=== PATIENT | female | born 1960 | race African-American/Black ===

== ENCOUNTER 2018-10-15 12:56 | Emergency (ER) | payer MEDICARE, MEDICAID ==
[~2018-10-15] VITALS: Ht 162.6 cm; Wt 99.8 kg
--- NOTE | 2018-10-15 13:10 | Emergency Room Report ---
History of Present Illness General Chief Complaint: General Complaint Source: Patient (Betsy Phelps DO) Present Illness HPI Patient presents with complaints of general weakness Muscle twitching Some confusion and dizziness patient has been on chronic pain medications including morphine Recently was started on buprenorphine/naloxone She is also on Seroquel and Lyrica Recently now since Saturday patient having increased symptoms Denies any chest pain denies any vomiting or diarrhea Patient feels of the twitching is worse during the daytime involving both of her feet and her hands denies any change with speech (ErnestoluciaBetsy ) Allergies: Coded Allergies: No Known Allergies (Unverified , 10/15/18) Patient History Past Medical History: see triage record Pertinent Family History: none Reviewed Nursing Documentation: PMH: Agreed; PSxH: Agreed (ErnestoluciaBetsy ) Past Surgical History: pacemaker (Odin Delacruz MD) Nursing Documentation-PMH Hx Cardiac Problems: Yes - ANEMIA, FIBROMYALGIA, HYPERLIPIDEMIA Hx Hypertension: Yes History Of Psychiatric Problem: Yes (Betsy Phelps DO) Review of Systems All Other Systems: negative except mentioned in HPI (ErnestoluciaBetsy MARTINES) Physical Exam Vital Signs Date Time Temp Pulse Resp B/P (MAP) Pulse Ox O2 Delivery O2 Flow Rate FiO2 10/15/18 12:50 98.6 72 18 105/66 (79) 99 Room Air Sp02 EP Interpretation: reviewed, normal General Appearance: mild distress - Somewhat lethargic Head: normocephalic, atraumatic Eyes: bilateral eye PERRL, bilateral eye EOMI ENT: hearing grossly normal, TMs + canals normal, uvula midline, dry mucus membranes Neck: full range of motion, supple, no meningismus, no bony tend Respiratory: lungs clear, normal breath sounds, no rhonchi, no respiratory distress, no retraction, no accessory muscle use Cardiovascular #1: normal peripheral pulses, regular rate, rhythm, no edema, no gallop, no JVD, no murmur Gastrointestinal: normal bowel sounds, non tender, soft, no mass, no organomegaly, non-distended, no guarding, no hernia, no pulsatile mass, no rebound Genitourinary: no CVA tenderness Musculoskeletal: normal inspection Neurologic: oriented x3, responsive, valver III-XII nml as tested, motor strength/ tone normal, sensory intact Psychiatric: mood/affect normal Skin: normal color, no rash, warm/dry, palpation normal Lymphatic: normal inspection, no adenopathy (Betsy Phelps DO) Medical Decision Making Diagnostic Impression: Primary Impression: Adverse reaction to narcotic drug Qualified Codes: T40.605A - Adverse effect of unspecified narcotics, initial encounter Additional Impressions: Renal insufficiency Rhabdomyolysis Qualified Codes: M62.82 - Rhabdomyolysis ER Course Multiple differentials and consideration Including but not limited to intracranial, cardiac, metabolic pathology Patient is complex requiring extensive blood work (Betsy Phelps DO) ER Course Please see above note. Patient still feels dizzy and disoriented. She denies any nausea however she feels dehydrated at this time. She is receiving IV hydration. Labs are pending. Renal insufficiency and rhabdomyolysis. Alkalizing urine. Sending urine sodium and creatinine. Discussed with Dr. Guerin who accepts patient in transfer. Fractional excretion sodium = 0.6% - suggests pre-renal. Hydrating and giving bicarb. Transfer [facility]. Laboratory Tests Test 10/15/18 13:20 10/15/18 14:05 White Blood Count 7.4 K/UL (4.8-10.8) Red Blood Count 4.27 M/UL (4.20-5.40) Hemoglobin 13.0 G/DL (12.0-16.0) Hematocrit 40.6 % (37.0-47.0) Mean Corpuscular Volume 95 FL (80-99) Mean Corpuscular Hemoglobin 30.4 PG (27.0-31.0) Mean Corpuscular Hemoglobin Concent 31.9 G/DL (32.0-36.0) L Red Cell Distribution Width 13.1 % (11.6-14.8) Platelet Count 111 K/UL (150-450) L Mean Platelet Volume 8.9 FL (6.5-10.1) Neutrophils (%) (Auto) 72.6 % (45.0-75.0) Lymphocytes (%) (Auto) 15.9 % (20.0-45.0) L Monocytes (%) (Auto) 9.8 % (1.0-10.0) Eosinophils (%) (Auto) 0.6 % (0.0-3.0) Basophils (%) (Auto) 1.1 % (0.0-2.0) Urine Color Brown Urine Appearance Cloudy Urine pH 5 (4.5-8.0) Urine Specific [place] 1.025 (1.005-1.035) Urine Protein 2+ (NEGATIVE) H Urine Glucose (UA) Negative (NEGATIVE) Urine Ketones Negative (NEGATIVE) Urine Blood 5+ (NEGATIVE) H Urine Nitrite Negative (NEGATIVE) Urine Bilirubin Negative (NEGATIVE) Urine Urobilinogen Normal MG/DL (0.0-1.0) Urine Leukocyte Esterase 1+ (NEGATIVE) H Urine RBC 2-4 /HPF (0 - 2) H Urine WBC 0-2 /HPF (0 - 2) Urine Squamous Epithelial Cells Few /LPF (NONE/OCC) Urine Bacteria Moderate /HPF (NONE) H Urine Coarse Granular Casts 5-10 /LPF (NONE) H Urine Random Sodium 91 mmol/L (20-110) Urine Creatinine 221.7 MG/DL (30.0-125.0) H Troponin I 0.038 ng/mL (0.000-0.056) Free Thyroxine 0.80 NG/DL (0.76-1.46) Urine Opiates Screen Negative (NEGATIVE) Urine Barbiturates Screen Negative (NEGATIVE) Phencyclidine (PCP) Screen Negative (NEGATIVE) Urine Amphetamines Screen Negative (NEGATIVE) Urine Benzodiazepines Screen Negative (NEGATIVE) Urine Cocaine Screen Negative (NEGATIVE) Urine Marijuana (THC) Screen Negative (NEGATIVE) Sodium Level 142 MMOL/L (136-145) Potassium Level 5.1 MMOL/L (3.5-5.1) Chloride Level 105 MMOL/L (98-107) Carbon Dioxide Level 31 MMOL/L (21-32) Anion Gap 6 mmol/L (5-15) Blood Urea Nitrogen 30 mg/dL (7-18) H Creatinine 2.0 MG/DL (0.55-1.30) H Estimate Glomerular Filtration Rate 31.0 mL/min (>60) Glucose Level 106 MG/DL (74-106) Calcium Level 9.6 MG/DL (8.5-10.1) Total Bilirubin 0.4 MG/DL (0.2-1.0) Aspartate Amino Transferase (AST) 258 U/L (15-37) H Alanine Aminotransferase (ALT) 96 U/L (12-78) H Alkaline Phosphatase 75 U/L (46-116) Total Creatine Kinase > 22093 U/L (26-308) H Creatine Kinase MB 65.7 NG/ML (0.0-3.6) H Creatine Kinase MB Relative Index 0.0 Total Protein 6.7 G/DL (6.4-8.2) Albumin 3.7 G/DL (3.4-5.0) Globulin 3.0 g/dL Albumin/Globulin Ratio 1.2 (1.0-2.7) Thyroid Stimulating Hormone (TSH) 0.263 uiU/mL (0.358-3.740) Salicylates Level 3.9 ug/mL (2.8-20) Acetaminophen Level < 2 MCG/ML (10-30) L Serum Alcohol < 3 mg/dL (Odin Delacruz MD) Rhythm Strip Diag. Results EP Interpretation: yes Rhythm: NSR, no PVC's, no ectopy (Odin Delacruz MD) Chest X-Ray Diagnostic Results Chest X-Ray Diagnostic Results : Chest X-Ray Ordered: Yes # of Views/Limited/Complete: 1 View Indication: Other EP Interpretation: Yes Interpretation: no effusion, no pneumothorax, other - some reversal of flow and hypoventilatory changes, pacer Impression: Other Electronically Signed by: Electronically signed by Odin Delacruz MD (Odin Delacruz MD) Last Vital Signs Date Time Temp Pulse Resp B/P (MAP) Pulse Ox O2 Delivery O2 Flow Rate FiO2 10/15/18 12:50 98.6 72 18 105/66 (79) 99 Room Air (MattieBetsy MARTINES) Last Vital Signs Date Time Temp Pulse Resp B/P (MAP) Pulse Ox O2 Delivery O2 Flow Rate FiO2 10/15/18 17:30 98.6 71 20 114/65 100 Room Air Status: improved (Odin Delacruz MD) Disposition: XFER SHT-TRM HOSP Condition: Serious Betsy Phelps DO October 15, 2018 13:10 Odin Delacruz MD October 15, 2018 14:58
[2018-10-15] MEDS ORDERED: TENORMIN100 MG ORAL (13:17)
[2018-10-15] MEDS ORDERED: CRESTOR20 MG ORAL (13:17)
[2018-10-15] MEDS ORDERED: NEXIUM40 MG ORAL (13:17)
[2018-10-15] MEDS ORDERED: LYRICA150 MG ORAL (13:17)
[2018-10-15] MEDS ORDERED: LEVOTHYROXINE175 MCG ORAL (13:17)
[2018-10-15] MEDS ORDERED: HYDROCHLOROTHIA25 MG ORAL (13:17)
[2018-10-15] MEDS ORDERED: VENTOLIN HFA18 GM INH (13:17)
[2018-10-15] MEDS ORDERED: ASPIR 8181 MG ORAL (13:17)
[2018-10-15] MEDS ORDERED: NITROSTAT0.4 M2 SL (13:17)
[2018-10-15] MEDS ORDERED: FUROSEMIDE40 MG ORAL (13:17)
[2018-10-15] MEDS ORDERED: BUPRENORPHIN-N1 EACH SL (13:17)
[2018-10-15] MEDS ORDERED: QUETIAPINE FUMA50 MG ORAL (13:17)
[2018-10-15] MEDS ORDERED: TOLTERODINE TART2 MG PO (13:17)
[2018-10-15] MEDS ORDERED: ZOFRAN4 MG ORAL (13:17)
[2018-10-15] MEDS ORDERED: ANTI-DIARRHEAL2 MG PO (13:17)
[2018-10-15] MEDS ORDERED: HYDRALAZINE HCL25 M1 ORAL (13:17)
[2018-10-15] MEDS ORDERED: TRAZODONE HCL50 MG ORAL (13:17)
[2018-10-15] MEDS ORDERED: BENICAR20 MG ORAL (13:17)
[2018-10-15] MEDS ORDERED: FERROUS SULFAT325 M2 ORAL (13:17)
[2018-10-15] MEDS ORDERED: ROZEREM8 MG PO (13:17)
[2018-10-15 13:25] VITALS: BP 102/60
--- NOTE | 2018-10-15 13:32 | NUR ---
ED Nurse Note: Pt BIBA from home due to "not feeling like herself recently. My both arms and legs have been twitching. I feel weak. I was out 3 times this morning" Pt stated medication change recently: Lyrica dosage changed from 75mg to 150mg x 2/day. No head wound noted. Pt complains of pain on L arm from the falls. AOx4, VSS adriel. Pt usually walks with cane or walker at home. Will cont to monitor.
[2018-10-15 13:40] LABS: BASOPHILS % (AUTO) 1.1 % (0.0-2.0); EOSINOPHILS % (AUTO) 0.6 % (0.0-3.0); HEMATOCRIT 40.6 % (37.0-47.0); LYMPHOCYTES % (AUTO) 15.9 % (20.0-45.0); MEAN CORPUSCULAR VOLUME 95 FL (80-99); MONOCYTES % (AUTO) 9.8 % (1.0-10.0); NEUTROPHILS % (AUTO) 72.6 % (45.0-75.0); PLATELET COUNT 111 K/UL (150-450); RED BLOOD COUNT 4.27 M/UL (4.20-5.40); RED CELL DISTRIBUTION WIDTH 13.1 % (11.6-14.8); WHITE BLOOD COUNT 7.4 K/UL (4.8-10.8)
--- NOTE | 2018-10-15 13:47 | NUR ---
ED Nurse Note: Pt used commode in room, urine collected and sent to lab.
[2018-10-15 14:31] LABS: APPEARANCE,URINE CLOUDY; BILIRUBIN, URINE NEGATIVE (NEGATIVE); GLUCOSE, URINE (UA) NEGATIVE (NEGATIVE); KETONES,URINE NEGATIVE (NEGATIVE); LEUKOCYTE ESTERASE ,URINE 1+ (NEGATIVE); NITRITE,URINE NEGATIVE (NEGATIVE); PH,URINE 5 (4.5-8.0); PROTEIN,URINE 2+ (NEGATIVE); UROBILINOGEN,URINE NORMAL MG/DL (0.0-1.0)
[2018-10-15 14:33] LABS: COLOR,URINE BROWN
[2018-10-15 14:40] LABS: ANION GAP 6 mmol/L (5-15); BLOOD UREA NITROGEN 30 mg/dL (7-18); CALCIUM 9.6 MG/DL (8.5-10.1); CARBON DIOXIDE 31 MMOL/L (21-32); CHLORIDE 105 MMOL/L (98-107); POTASSIUM 5.1 MMOL/L (3.5-5.1); SODIUM 142 MMOL/L (136-145)
[2018-10-15 14:45] VITALS: BP 115/55
--- NOTE | 2018-10-15 14:46 | NUR ---
ED Nurse Note: Water and juice provided at this time, confirmed with Dr. Delacruz that pt is ok to take PO.
[2018-10-15 14:53] LABS: ALANINE AMINOTRANSFERASE 96 U/L (12-78); ALBUMIN 3.7 G/DL (3.4-5.0); ALBUMIN/GLOBULIN RATIO 1.2 (1.0-2.7); ALKALINE PHOSPHATASE 75 U/L (46-116); ASPARTATE AMINO TRANSFERASE 258 U/L (15-37); BILIRUBIN,TOTAL 0.4 MG/DL (0.2-1.0); CKMB 65.7 NG/ML (0.0-3.6); CREATINE KINASE > 10000 U/L (26-308)
[2018-10-15] MEDS ORDERED: SODIUM BICARBONATE IV SCH (15:30)
[2018-10-15] MEDS ORDERED: D5 IV SCH (15:30)
[2018-10-15] MEDS ORDERED: [UNRECOGNIZED DRUG - OTHER] IV SCH (15:30)
--- NOTE | 2018-10-15 15:35 | NUR ---
ED Nurse Note: Called Pharmacy about Sodium Bicarbonate medication bag.
--- NOTE | 2018-10-15 16:34 | NUR ---
ED Nurse Note: Report given to LEOLA Flores at [facility] in [place]. Awaiting for transportation.
[2018-10-15 16:35] VITALS: BP 108/68
--- NOTE | 2018-10-15 16:42 | Diagnostic Imaging Report ---
Indication: Dyspnea Comparison: None A single view chest radiograph was obtained. Findings: There is pulmonary vascular congestion present with prominent slightly ill-defined pulmonary vessels throughout the lungs. The heart is enlarged. No definite pleural effusion identified. There is a pacemaker on the left. IMPRESSION: Evidence of CHF
[2018-10-15 17:30] VITALS: BP 114/65
--- NOTE | 2018-10-15 17:30 | NUR ---
ED Nurse Note: BLS ambulance personels at bedside for transportation. No sign of acute distress.
--- NOTE | 2018-10-17 15:31 | Cardiology Report ---
APPROVED REPORT EKG Measurement Heart [id number] Atrial fibrillation with ventricular paced rhythm. Electronic pacemaker. Abnormal ECG.
== END 2018-10-15 17:47 | disposition short-term general hospital (02) ==
LOC: EDBD 12:56 → EMR 14:08
DX: T40.605A Adverse effect of unspecified narcotics, initial encounter (principal); M62.82 Rhabdomyolysis; N28.9 Disorder of kidney and ureter, unspecified; E78.5 Hyperlipidemia, unspecified; M79.7 Fibromyalgia; I10 Essential (primary) hypertension; Z95.0 Presence of cardiac pacemaker
CPT/HCPCS: 36415; 71045; 80053; 80307; 81003; 82550; 82553; 82570; 84300; 84439; 84443; 84484; 85025; 87086; 93005; 96365; 96366; 99284; G0480; 80329